=== PATIENT | female | born 1950 | race Two or more races ===

== ENCOUNTER 2021-08-09 08:59 | Day surgery (SDC) | payer MEDICARE, BC ==
[2021-08-08 11:19] LABS: Urine Bacteria NONE SEEN /hpf (None Seen); Urine Blood 3+ /uL (Negative); Urine Specific Gravity 1.023 (1.001-1.035); Urine WBC 20 /hpf (0 - 5)
[2021-08-08 11:25] LABS: Basophils # (auto) 0.1 10 ^3/uL (0-0.2); Basophils % (auto) 1.1 % (0.0-2.0); Eosinophils # (auto) 0.4 10 ^3/uL (0-0.8); Eosinophils % (auto) 4.3 % (0.0-7.0); Hematocrit 38.9 % (36.0-46.0); Hemoglobin 13.3 g/dL (12.2-16.2); Lymphocytes # (auto) 4.4 10 ^3/uL (0.4-5.4); Lymphocytes % (auto) 46.4 % (10.0-50.0); Mean Corpuscular Hemoglobin 30.7 pg (28.0-32.0); Mean Corpuscular Hgb Conc. 34.2 g/dL (32.0-36.0); Mean Corpuscular Volume 89.9 fL (80.0-100.0); Monocytes # (auto) 0.6 10 ^3/uL (0-1.3); Monocytes % (auto) 6.5 % (0.0-12.0); Neutrophils % (auto) 41.7 % (37.0-80.0); Nucleated Red Blood Cells % 0.1 %; Red Blood Cells 4.33 10^6/uL (4.0-5.20); Red Cell Distribution Width 13.8 % (11.8-14.3); White Blood Cell 9.6 10^3/uL (4.4-10.8)
[2021-08-08 11:27] LABS: INR 0.95 (0.9-1.15); Partial Thromboplastin Time 29.2 sec (23.6-33.0)
[2021-08-08 11:48] LABS: Albumin 3.4 g/dL (3.4-5.0); Potassium 4.7 mmol/L (3.5-5.1)
[2021-08-08 11:55] LABS: BUN/Creatinine Ratio 19.2; Bilirubin, Total 0.4 mg/dL (0.2-1.0); Calcium 10.2 mg/dL (8.5-10.1); Total Protein 7.7 g/dL (6.4-8.2)
[~2021-08-09] VITALS: Ht 157.5 cm; Wt 106.6 kg
[~2021-08-09 08:59] MED LIST: CHOL500040 PO; GLIP5TAB12 PO; LEVO125T7 PO; METF-372 PO; TRAM50TA2 PO
[2021-08-09] MEDS ORDERED: ROCURONIUM 10MG/ML 10ML VIAL IV ONE (10:17)
[2021-08-09] MEDS ORDERED: MIDAZOLAM HCL 2MG/2ML 2ml VIAL (1mg/ml) ONE (10:17)
[2021-08-09] MEDS ORDERED: fentaNYL CITRATE 5 ML ONE (10:17)
[2021-08-09] MEDS ORDERED: CIPROFLOXACIN 400MG/200ML 200 ML IV ONE (10:18)
[2021-08-09] MEDS ORDERED: LIDOCAINE 2% (LOCAL ANESTH.) PF 5ml SDV ONE (10:18)
[2021-08-09] MEDS ORDERED: ONDANSETRON HCL 4 MG/2 ML VIAL ONE (10:18)
[2021-08-09] MEDS ORDERED: IOHEXOL 300 MG/ML 100ML BOTTLE IJ ONE (10:26)
[2021-08-09] MEDS ORDERED: ONDANSETRON HCL 4 MG/2 ML VIAL IV PRN (11:45)
[2021-08-09] MEDS ORDERED: FUROSEMIDE 20 MG/2 ML VIAL ONE (12:07)
[2021-08-09] MEDS ORDERED: SUGAMMADEX 200mg/2ml Vial (100MG/ML) IV ONE (12:22)
[2021-08-09] MEDS ORDERED: PROPOFOL 10 MG/ML 20 ML IV ONE (12:34)
[2021-08-09] MEDS: HYDROmorphone HCL 2 MG/ML VL/or syr IV PRN ×4 (12:50→13:50)
[2021-08-09 14:30] VITALS: BP 136/64
== END 2021-08-09 14:45 | disposition home or self-care (01) ==
LOC: SUR 08:59
PROVIDERS: ATTEND Urology
DX: T19.9XXA Foreign body in genitourinary tract, part unspecified, initial encounter (principal); N20.2 Calculus of kidney with calculus of ureter; E66.01 Morbid (severe) obesity due to excess calories; E11.9 Type 2 diabetes mellitus without complications; E03.9 Hypothyroidism, unspecified; Z90.710 Acquired absence of both cervix and uterus; Z98.890 Other specified postprocedural states; Z79.899 Other long term (current) drug therapy; Z88.0 Allergy status to penicillin; Z88.5 Allergy status to narcotic agent; Z79.84 Long term (current) use of oral hypoglycemic drugs; Z20.822 Contact with and (suspected) exposure to COVID-19; Z68.41 Body mass index [BMI] 40.0-44.9, adult; Y82.8 Other medical devices associated with adverse incidents
CPT/HCPCS: 36415; 52310; 80053; 81001; 82962; 85025; 85610; 85730; 87086; 88300; C1769; C9803; J0744; J1170; J1940; J2001; J2250; J2405; J2704; J3010; Q9967; U0003